=== PATIENT | male | born 1975 | race Caucasian/White ===

== ENCOUNTER → 2019-06-21 | Outpatient (CLI) | payer BC ==
--- NOTE | 2019-06-21 09:11 | Diagnostic Imaging Report ---
INDICATION: Injury left rib pain FINDINGS: There is some left basilar pulmonary opacity probably some partial atelectasis. No pneumothorax or pleural fluid. No free air beneath the diaphragm. No radiographic findings to suggest diaphragmatic defect. No appreciable rib fracture deformity. No bony destructive process. IMPRESSION: Partial atelectasis left base, otherwise negative. Dictated by: Dictated on workstation # [id number]
== END ==
LOC: RAD FS 08:53
PROVIDERS: ATTEND Nurse Practitioner
DX: S20.219A Contusion of unspecified front wall of thorax, initial encounter (principal); J98.11 Atelectasis
CPT/HCPCS: 71100